=== PATIENT | female | born 1955 | race Caucasian/White ===

== ENCOUNTER → 2022-05-15 | Emergency (ER) | payer MEDICARE, MEDICAID ==
[~2022-05-15] VITALS: Ht 172.7 cm; Wt 62.6 kg
[~2022-05-15] MED LIST: ARIP5TAB10 PO; BARI2TAB PO; CHLO5CAP3 PO; DEXAMETHASONE SOD PHOSPHATE 4 MG INJ IM ONE; DEXAMETHASONE SOD PHOSPHATE 4 MG INJ ONE
[2022-05-15 23:15] VITALS: BP 123/85
--- NOTE | 2022-05-15 23:16 | NUR ---
Patient discharged to home in stable condition. Written and verbal after care instructions given. Patient verbalizes understanding of instructions. Stressed follow up or return to ER for worsening s/s. pateint walked out with steady gait.
== END | disposition home or self-care (01) ==
LOC: ER 20:50
DX: R06.00 Dyspnea, unspecified (principal); Z20.822 Contact with and (suspected) exposure to COVID-19; F41.9 Anxiety disorder, unspecified; F32.A Depression, unspecified; M19.90 Unspecified osteoarthritis, unspecified site; Z79.899 Other long term (current) drug therapy; Z88.0 Allergy status to penicillin
CPT/HCPCS: 99284; 71045; 87426; 87400; 96372; J1100; A4663

== ENCOUNTER 2022-05-31 20:34 | Emergency (ER) | payer MEDICAID, MEDICARE ==
[~2022-05-31 20:34] MED LIST changes: -DEXAMETHASONE SOD PHOSPHATE 4 MG INJ IM ONE; -DEXAMETHASONE SOD PHOSPHATE 4 MG INJ ONE
--- NOTE | 2022-05-31 20:50 | NUR ---
PATIENT WAS NOT TRIAGED OR SEEN BY ER MD.
== END 2022-05-31 20:51 | disposition left against medical advice (07) ==
LOC: ER 20:34
DX: Z53.21 Procedure and treatment not carried out due to patient leaving prior to being seen by health care provider (principal)